=== PATIENT | female | born 1935 | race Caucasian/White ===

== ENCOUNTER 2017-01-11 12:23 | Emergency (ER) | payer OTHER ==
[~2017-01-11] VITALS: Ht 162.6 cm; Wt 72.6 kg
[2017-01-11 12:26] VITALS: BP 160/80
--- NOTE | 2017-01-11 12:37 | NUR ---
PT BIBA FROM SNF FOR EVALUATION OF RASH TO LOWER BACK. HX HTN, ALZHEIMER'S.AAOX4, LUNGS CLEAR BL; PT DENIES ANY FEVER, CP, SOB, OR COUGH AT THIS TIME; PATIENT STATES PAIN OF 0/10 AT THIS TIME; PATIENT POSITIONED FOR COMFORT; HOB ELEVATED; BEDRAILS UP X2; BED DOWN. ER MD MADE AWARE OF PT STATUS.
[2017-01-11] MEDS ORDERED: [UNRECOGNIZED DRUG - CODE] TOP (12:41)
[2017-01-11] MEDS ORDERED: [UNRECOGNIZED DRUG - CODE] PO (12:41)
[2017-01-11] MEDS ORDERED: ATI.5 PO (12:41)
[2017-01-11] MEDS ORDERED: CLON0.1T79 PO (12:41)
[2017-01-11] MEDS ORDERED: [UNRECOGNIZED DRUG - CODE] PO (12:41)
[2017-01-11] MEDS ORDERED: BACL10TA4 PO (12:41)
[2017-01-11] MEDS ORDERED: ACET-2863 PO (12:41)
[2017-01-11] MEDS ORDERED: SERT25TA PO (12:41)
[2017-01-11] MEDS ORDERED: BENA20TA PO (12:41)
[2017-01-11] MEDS ORDERED: FLUO40CA6 PO (12:41)
--- NOTE | 2017-01-11 13:40 | NUR ---
Patient appears to be resting comfortably in bed. BP 150/89, P 99/MINS. Respirations even and unlabored.WILL CONTINUE TO MONITOR.
--- NOTE | 2017-01-11 13:47 | NUR ---
SPOKE Pooja/LISANDRA AT [facility] AND WAS INFORMED THAT PT REQUIRES TRANSPORTATION BY GURNEY/AMBULANCE SHE IS NOT ABLE TO SIT UP AND PAYS ALL COSTS.
--- NOTE | 2017-01-11 15:11 | NUR ---
Patient appears to be resting comfortably in bed. BP 167/96, Respirations even and unlabored. WILL CONTINUE TO MONITOR. Addendum: 01/11/17 at 1515 by [facility] AT BEDSIDE.
[2017-01-11 15:36] VITALS: BP 167/96
--- NOTE | 2017-01-11 15:36 | NUR ---
Note jose miguel in EDM - 01/11/17 at 1546 by [facility] Patient discharged [id number]; DENIES HEADACHE at this time. Written and verbal after care instructions given and explained. Patient verbalized understanding. Ambulance Transport with to halfway. All questions addressed prior to discharge. Advised to follow up with PMD.
--- NOTE | 2017-01-11 15:36 | NUR ---
Patient discharged with 167/96; DENIES HEADACHE at this time. Written and verbal after care instructions given and explained.Patient alert, oriented and verbalized understanding of instructions. [facility]. All questions addressed prior to discharge. ID band removed. Patient advised to follow up with PMD. Rx of keflex & prednisone given. Patient educated on indication of medication including possible reaction and side effects. Opportunity to ask questions provided and answered.
== END 2017-01-11 15:36 ==
LOC: MED 12:23 → EDBD 12:23 → MED 15:36
DX: L03.312 Cellulitis of back [any part except buttock and flank] (principal); I10 Essential (primary) hypertension; F03.90 Unspecified dementia, unspecified severity, without behavioral disturbance, psychotic disturbance, mood disturbance, and anxiety; Z88.2 Allergy status to sulfonamides; Z90.89 Acquired absence of other organs
CPT/HCPCS: 99283